=== PATIENT | male | born 1975 | race Two or more races ===

== ENCOUNTER 2018-03-27 07:30 | Day surgery (SDC) | payer OTHER ==
[~2018-03-27 07:30] MED LIST: DIPHENHYDRAMINE HCL 50 MG/ML VIAL ONE; EPINEPHRINE INJ 1 MG/10 ML DISP.SYRIN ONE; FLUMAZENIL INJ 0.5 MG/5 ML VIAL ONE; GLUCAGON,HUMAN RECOMB 1 MG INJ ONE; NALOXONE HCL INJ/PF 0.4 MG/1 ML SDV ONE; ONDANSETRON HCL INJ/PF 4 MG/2 ML SDV ONE
[2018-03-27] MEDS: MIDAZOLAM 2 MG/2 ML INJ ONE ×3 (08:20→08:28)
[2018-03-27] MEDS: FENTANYL CITRATE INJ/PF 100 MCG/2 ML AMPUL ONE ×4 (08:22→08:37)
--- NOTE | 2018-03-27 08:49 | Operative Report ---
Operative Report DATE OF SURGERY: 03/27/18 Operative Report: The risks, benefits and alternatives of the procedure including the risks of bleeding, perforation requiring surgery are explained to the patient in detail and informed consent was obtained. Patient was brought back to the endoscopy suite and placed in the left, lateral decubital position. Timeout was called. Conscious sedation medications are provided. Rectal examination is done which did not reveal any masses, tears or fissures. An Olympus videoscope was introduced into the patient's rectum. The scope was then carefully advanced all the way to the cecum. The cecum was identified by the usual anatomical landmarks including the ileocecal valve as well as the appendiceal office. Photodocumentation is obtained. Prep was not good on the right side of the colon. However adequate visualization was able to be done. The scope was then sequentially pulled back through the various segments of the colon including the ascending colon, hepatic flexure, transverse colon, splenic flexure, descending colon and finally into the rectosigmoid portions of the colon. Retroflexion maneuver was done. Heme is noted in the area of the rectum. Irrigation is done There appears to be some AVMs. 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 Conscious sedation monitoring time 30 minutes. TISSUE REMOVED OR ALTERED: None. COMPLICATIONS: None. ESTIMATED BLOOD LOSS: None. INTRAOPERATIVE FINDINGS: As noted above. PROCEDURE: Patient tolerated the procedure well. No immediate postprocedure complications are noted. Patient discharged in good condition. Discharge date 03/27/2018. Discharge diet: Regular. Discharge activity: Regular. 2-3-week follow-up to discuss findings. Patient is instructed to call the office or proceed to the emergency room should there be any further problems or questions.
[2018-03-27] MEDS ORDERED: SIMETHICONE 80 MG TAB.CHEW ONE (09:26)
[2018-03-27 09:50] VITALS: BP 111/63
== END 2018-03-27 10:25 | disposition home or self-care (01) ==
LOC: END 07:30
PROVIDERS: ATTEND Internal Medicine Gastroenterology
PROC: 0D5P8ZZ Destruction of Rectum, Via Natural or Artificial Opening Endoscopic (ICD-10-PCS; principal; 2018-03-27 08:00)
DX: K55.21 Angiodysplasia of colon with hemorrhage (principal)
CPT/HCPCS: 45388; J2250; J3010; J0171; J1200; J1610; J2310; J2405; J3490